=== PATIENT | female | born 1955 | race Asian ===

== ENCOUNTER 2022-10-04 13:55 | Outpatient (CLI) | payer BC | END 2022-10-04 13:56 | disposition home or self-care (01) | LOC: CSHMAMMO 13:55 | PROVIDERS: ATTEND Internal Medicine | DX: Z12.31 Encounter for screening mammogram for malignant neoplasm of breast (principal); Z13.820 Encounter for screening for osteoporosis; M85.851 Other specified disorders of bone density and structure, right thigh; Z85.3 Personal history of malignant neoplasm of breast; Z90.11 Acquired absence of right breast and nipple; Z78.0 Asymptomatic menopausal state | CPT/HCPCS: 77063; 77067; 77080 ==

== ENCOUNTER 2024-08-09 09:03 | Outpatient (CLI) | payer BC ==
[2024-08-09] MEDS ORDERED: Iopamidol 300 61% 100 ML VIAL FS ONE (12:04)
== END 2024-08-09 09:04 | disposition home or self-care (01) ==
LOC: CSHCT 09:03
PROVIDERS: ATTEND Internal Medicine
DX: K85.90 Acute pancreatitis without necrosis or infection, unspecified (principal); K86.89 Other specified diseases of pancreas
CPT/HCPCS: 74160; Q9967

== ENCOUNTER 2024-08-23 10:24 | Outpatient (CLI) | payer BC ==
[2024-08-23] MEDS ORDERED: Magnevist 469MG/ML 20 ML VIAL ONE (13:27)
== END 2024-08-23 10:25 | disposition home or self-care (01) ==
LOC: CSHMRI 10:24
PROVIDERS: ATTEND Physician Assistant Medical
DX: R10.13 Epigastric pain (principal); K86.2 Cyst of pancreas; K86.3 Pseudocyst of pancreas; Z12.11 Encounter for screening for malignant neoplasm of colon; Z12.12 Encounter for screening for malignant neoplasm of rectum; Z83.719 Family history of colon polyps, unspecified; D18.03 Hemangioma of intra-abdominal structures
CPT/HCPCS: 36415; 74183; 76376; 82565